=== PATIENT | female | born 1945 | race African-American/Black ===

== ENCOUNTER → 2016-09-11 | Day surgery (SDC) | payer MEDICARE ==
[~2016-09-11] VITALS: Ht 165.1 cm; Wt 55.4 kg
[~2016-09-11] MED LIST: CALCIUM CARBON600 MG PO; CYMBALTA 30MG C30 MG PO; HYDRALAZINE25 MG PO; LAMICTAL200 MG PO; LISINOPRIL40 MG PO; LOPRESSOR50 MG PO; MICRO-K10 MEQ PO; NU-IRON 150150 MG PO; VITAMIN D1000 UNI1 PO
[2016-09-11 10:53] LABS: HCT 39.3 % (37.0-47.0); HGB 12.5 g/dl (12.5-16.0); MCH 29.6 pg (25.0-31.0); MCHC 31.8 g/dL (32.0-36.0); MCV 93.1 fL (78.0-100.0); MPV 9.5 fL (6.0-9.5); RBC 4.22 M/uL (4.20-5.40); RDW 13.7 % (11.5-14.0); WBC 5.3 K/uL (4.0-10.5)
[2016-09-11 11:07] LABS: ALBUMIN 4.6 g/dL (3.4-4.8); BILIRUBIN - TOTAL 0.2 mg/dL (0.1-1.0); CREATININE 1.1 mg/dL (0.5-1.0); GLOBULIN (CALCULATION) 2.1 g/dL (2.2-4.2); TOTAL PROTEIN 6.7 g/dL (6.4-8.3)
== END | disposition home or self-care (01) ==
LOC: FAS 10:19
PROVIDERS: Surgery
DX: Z45.2 Encounter for adjustment and management of vascular access device (principal); I87.2 Venous insufficiency (chronic) (peripheral); I69.928 Other speech and language deficits following unspecified cerebrovascular disease; I10 Essential (primary) hypertension; G40.909 Epilepsy, unspecified, not intractable, without status epilepticus; F17.210 Nicotine dependence, cigarettes, uncomplicated; Z90.12 Acquired absence of left breast and nipple; Z85.3 Personal history of malignant neoplasm of breast
CPT/HCPCS: 36415; 80053; J2405; J2704; J3010